=== PATIENT | female | born 1985 | race Asian ===

== ENCOUNTER 2020-01-05 15:09 | Emergency (ER) | payer SELFPAY ==
[2020-01-05 17:13] LABS: #Basophils 0.1 thou/uL (0.0-0.2); #Eosinphils 0.1 thou/uL (0.0-0.7); #Lymphocytes 2.4 thou/uL (1.20-3.40); #Neutrophils 6.5 thou/uL (1.40-6.50); %Basophils 0.7 % (0.0-1.0); %Eosinophils 1.1 % (0.0-10.0); %Lymphocytes 24.1 % (21.0-51.0); %Monocytes 9.5 % (0.0-10.0); %Neutrophils 64.6 % (42.0-75.0); Hemoglobin 11.5 g/dL (12.0-16.0); Mean Corpuscular HGB CONC 33.2 g/dL (32.0-36.0); Mean Corpuscular Hemoglobin 26.8 pg (27.0-31.0); Mean Corpuscular Volume 80.8 fL (78.0-98.0); Mean Platelet Volume 7.3 fL (7.4-10.4); Platelet Count 359 thou/uL (130-400); RBC Distribution Width 13.1 % (11.5-14.5)
[2020-01-05 18:39] LABS: ALT (SGPT) Less than 7 U/L (8-55); AST (SGOT) 10 U/L (5-34); Alkaline Phosphatase 35 U/L (40-110); Anion Gap 13 mmol/L (10-20); BUN (Urea Nitrogen) 8 mg/dL (7.0-18.7); Bilirubin, Total Less than 0.2 mg/dL (0.2-1.2); Calc. Creatinine Clearance 0 mL/min (70-130); Calcium 9.1 mg/dL (7.8-10.44); Carbon Dioxide 24 mmol/L (22-29); Chloride 102 mmol/L (98-107); Estimated GFR-MDRD Greater than 90; Globulin 3.5 g/dL (2.4-3.5); Glucose 79 mg/dL (70-105); Potassium 3.6 mmol/L (3.5-5.1); Protein, Total 7.5 g/dL (6.0-8.3); Sodium 135 mmol/L (136-145)
--- NOTE | 2020-01-05 19:27 | ULT ---
FIRST TRIMESTER OBSTETRICAL ULTRASOUND INDICATION: Vaginal spotting with history of TECHNIQUE: Grayscale, M-mode Doppler, color Doppler and spectral Doppler images were obtained. Cande giles is focused on the clinical indication. Transabdominal and transvaginal exam was performed. COMPARISON: No relevant prior studies available. FINDINGS: Uterus: The uterus measured 12.3 x 6.0 x 7.9cm.Multiple small circumscribed lesions are seen within the wall of the uterus suspicious for small fibroids. One is seen within the anterior aspect of the lower uterine segment measuring 1.9 cm. There is an additional within the posterior fundus measuring 1.3 cm . Smaller hypoechoic nodule is seen within the anterior aspect of the lower uterine segment measuring 8 mm. There are multiple nabothian cysts seen within the cervix. Intrauterine gestation: Single. Yolk Sac:Not identified Pole :Not identified. heart rate: Not applicable bpm. Subchorionic Hemorrhage: Small subchorionic hemorrhage is seen along the inferior aspect of the gest ational sac. This occupies less than 25% of the circumference. The gestational sac is abnormal in contour. BIOMETRY: The crown-rump length: Not applicable. The mean sac diameter: 3.28 cm giving an estimated gestational age of 8 weeks and 3 days with estima cruz due date of August 13, 2020 . The clinical age is 7 weeks and 4 days with estimated due date of August 19, 2020. Ovaries: RIGHT OVARY: Not seen LEFT OVARY: 2.7 x 1.7 x 1.7 cm. Mass: None. Flow: Normal CUL-DE-SAC: No free fluid IMPRESSION: 1. Abnormal appearing intrauterine gestational sac may reflects sequela of early or an embr yonic . Recommend continued clinical and sonographic follow-up. 2. Small subchorionic hemorrhage seen along the inferior margin of the gestational sac occupying less than 25% of the circumference. 3. Nonvisualization of the right ovary. Visualized left ovary was normal appearing. 4. Multiple small fibroids of the uterus. Multiple nabothian cysts of the cervix.
== END 2020-01-05 21:48 | disposition home or self-care (01) ==
LOC: ERS 15:09
DX: O20.9 Hemorrhage in early pregnancy, unspecified (principal); Z3A.01 Less than 8 weeks gestation of pregnancy
CPT/HCPCS: 36415; 76856; 80053; 84702; 85025; 86900; 86901

== ENCOUNTER 2020-01-09 14:08 | Emergency (ER) | payer MEDICAID, SELFPAY ==
[2020-01-09 14:55] LABS: #Basophils 0.1 thou/uL (0.0-0.2); #Eosinphils 0.2 thou/uL (0.0-0.7); #Lymphocytes 2.3 thou/uL (1.20-3.40); #Neutrophils 7.1 thou/uL (1.40-6.50); %Basophils 0.9 % (0.0-1.0); %Eosinophils 1.7 % (0.0-10.0); %Lymphocytes 21.9 % (21.0-51.0); %Monocytes 9.2 % (0.0-10.0); %Neutrophils 66.4 % (42.0-75.0); Mean Corpuscular HGB CONC 33.4 g/dL (32.0-36.0); Mean Corpuscular Hemoglobin 27.5 pg (27.0-31.0); Mean Corpuscular Volume 82.5 fL (78.0-98.0); Mean Platelet Volume 7.1 fL (7.4-10.4); Platelet Count 336 thou/uL (130-400); RBC Distribution Width 13.1 % (11.5-14.5); Red Blood Cell (RBC) Count 4.01 mill/uL (4.20-5.40); White Blood Cell (WBC) Count 10.7 thou/uL (4.8-10.8)
--- NOTE | 2020-01-09 15:08 | ULT ---
FIRST TRIMESTER OBSTETRICAL ULTRASOUND INDICATION: Vaginal bleeding for 3 days TECHNIQUE: Grayscale, M-mode Doppler, color Doppler and spectral Doppler images were obtained. Imagin g is focused on the clinical indication. Transabdominal images were obtained only. COMPARISON: Prior pelvic ultrasound dated January 05, 2020 FINDINGS: Uterus: The uterus measured 12.5 x 5.7 x 7.6cm. Intrauterine gestation: Single. Yolk Sac:Not seen Pole :Not identified. heart rate: 141 bpm. Subchorionic Hemorrhage: Previously seen subchorionic hemorrhage along the inferior margin of the ge stational sac is not demonstrated on the current study. The gestational sac now has a lobulated appearance with poorly defined amniotic cavity. No definable pole or yolk sac is identified. BIOMETRY: Mean sac diameter was 3.46 cm giving a mean gestational age of 8 weeks and 5 days. Estimated due date based on this measurement was August 15, 2020 Ovaries: RIGHT OVARY: The right ovary was not visualized. LEFT OVARY: The left ovary measured 3.4 x 1.8 x 2.4 cm. Mass: None. Flow: Normal CUL-DE-SAC: No free fluid IMPRESSION: 1. Abnormal appearing gestational sac without definable internal anatomy is suspicious for an a nembryonic . Findings can also be seen with intrauterine demise and impending . Clinical and sonographic follow-up is recommended. 2. Nonvisualization of the right ovary. The visualized left ovary was normal appearing. 3. No free fluid.
[2020-01-09 15:15] LABS: Bilirubin Negative (Negative); Blood, Urine Moderate (Negative); Clarity Clear (Clear); Glucose, Urine (Dipstick) Negative (Negative); Ketone, Urine Negative (Negative); Leukocyte Negative (Negative); Nitrite Negative (Negative); Protein, Urine (Dipstick) Negative (Neg-Trace); Urobilinogen 0.2 mg/dL (Less than 2)
[2020-01-09 15:20] LABS: Bacteria/HPF Rare-Few HPF (None Seen); RBC/HPF None Seen HPF (0-3); Squamous Epithelial None Seen HPF (0-3); WBC/HPF None Seen HPF (0-3)
== END 2020-01-09 17:31 | disposition home or self-care (01) ==
LOC: ERS 14:08
DX: O20.9 Hemorrhage in early pregnancy, unspecified (principal); Z3A.08 8 weeks gestation of pregnancy
CPT/HCPCS: 36415; 76856; 81003; 81015; 84702; 85025; 93976